=== PATIENT | male | born 1975 | race Hispanic/Latino ===

== ENCOUNTER 2023-08-04 09:58 | Emergency (ER) | payer SELFPAY ==
[~2023-08-04] VITALS: Ht 177.8 cm; Wt 111.0 kg
[2023-08-04 10:58] LABS: BASO% 0.3 % (0-3); EOS% 0.1 % (0-8); HEMATOCRIT 41.6 % (39.0-50.0); HEMOGLOBIN 13.9 g/dl (14.0-18.0); IMMATURE GRANULOCYTES 0.6 % (0.0-5.0); LYMPH% 9.7 % (15-41); MEAN CELL VOLUME 81.3 fL CALC (80.0-100.0); MEAN CORPUSCULAR HGB 27.1 pG CALC (26.0-32.0); MEAN CORPUSCULAR HGB CONC 33.4 g/dL CAL (32.0-36.0); MONO% 25.3 % (2-13); NEUT# 4.33 thou/uL (1.82-7.42); RED BLOOD COUNT 5.12 mill/uL (4.70-6.10); RED CELL DISTRI WIDTH 13.4 % (11.5-15.5)
[2023-08-04 11:08] LABS: ALBUMIN 4.6 g/dL (3.2-5.0); ALKALINE PHOSPHATASE 60 u/l (38-126); ANION GAP 11 (6-22 (CALC)); BILIRUBIN, TOTAL 0.5 mg/dL (0.2-1.3); BUN 15 mg/dL (9-20); BUN/CREATININE RATIO 15 (12-20 (CALC)); CARBON DIOXIDE 29 mmol/l (22-30); CHLORIDE 101 mmol/l (95-108); GFR FOR AFR.AMER. > 60 ML/MIN (>=60 (CALC)); GFR OTHER RACES > 60 ML/MIN (>=60 (CALC)); POTASSIUM 3.8 mmol/l (3.5-5.1); SGOT/AST 45 u/l (17-59); SODIUM 137 mmol/l (137-146); TOTAL PROTEIN 7.8 g/dL (6.3-8.2)
[2023-08-04] MEDS ORDERED: TAM75CAP PO (12:08)
[2023-08-04 12:23] VITALS: BP 103/55
== END 2023-08-04 12:26 | disposition home or self-care (01) | DRG 153 ==
LOC: ED 09:58
PROVIDERS: Family Medicine
DX: J11.1 Influenza due to unidentified influenza virus with other respiratory manifestations (principal); Z20.822 Contact with and (suspected) exposure to COVID-19

== ENCOUNTER 2024-07-13 21:32 | Emergency (ER) | payer SELFPAY ==
[~2024-07-13] VITALS: Ht 177.8 cm; Wt 105.0 kg
[~2024-07-13 21:32] MED LIST: TAM75CAP PO
[2024-07-13] MEDS ORDERED: Acetaminophen 300 MG/Codeine 30 MG/COMBO PO ONE (21:55)
[2024-07-13] MEDS ORDERED: AMOXICILLIN TRIHYDRATE 500 MG/CAP PO ONE (21:55)
[2024-07-13] MEDS ORDERED: AMOXICILLIN500 MG PO (21:58)
[2024-07-13] MEDS ORDERED: TYLENOL # 31 TA1 PO (21:58)
[2024-07-13 22:08] VITALS: BP 158/75
== END 2024-07-13 22:08 | disposition home or self-care (01) | DRG 159 ==
LOC: ED 21:32
DX: K04.7 Periapical abscess without sinus (principal)